=== PATIENT | female | born 1950 | race Hispanic/Latino ===

== ENCOUNTER 2021-06-04 12:02 | Inpatient (IN) | payer OTHER, MEDICARE ==
[~2021-06-04] VITALS: Ht 157.5 cm; Wt 86.2 kg
[2021-06-04 12:40] LABS: BASOPHILS % (AUTO) 0.1 % (0.0-5.0); HEMATOCRIT 40.3 % (36-48); LYMPHOCYTES % (AUTO) 5.7 % (21.0-51.0); MEAN CORPUSCULAR HEMOGLOBIN 28.5 pg (27.0-33.0); MEAN CORPUSCULAR HGB CONC 33.3 g/dL (32.0-36.0); MEAN CORPUSCULAR VOLUME 85.6 fL (79-99); MONOCYTES % (AUTO) 4.7 % (3.0-13.0); NEUTROPHILS % (AUTO) 88.9 % (40.0-77.0); PLATELET COUNT (AUTO) 106 K/uL (130-400); RED BLOOD CELL COUNT(AUTO) 4.71 MIL/uL (4.00-5.50); RED CELL DISTRIBUTION WIDTH 14.7 % (11.0-15.5); WHITE BLOOD COUNT (AUTO) 6.9 K/uL (4.8-10.8)
[2021-06-04] MEDS ORDERED: FAMOTIDINE 20MG VIAL IV STA (12:41)
[2021-06-04 12:52] LABS: ALBUMIN 3.2 g/dL (3.5-5.0); BILIRUBIN,DIRECT 0.2 mg/dL (0.0-0.3); BILIRUBIN,TOTAL 0.5 mg/dL (0.2-1.0); CREATININE 2.9 mg/dL (0.5-1.5); POTASSIUM 3.3 mmol/L (3.5-5.1); TOTAL PROTEIN, SERUM 8.4 g/dL (6.0-8.3)
[2021-06-04] MEDS ORDERED: CEFTRIAXONE 1G VIAL 1 GM in 0.9%NACL 100ML 100 ML IV ONE (13:00)
[2021-06-04] MEDS ORDERED: SOLU-MEDROL 125MG VIAL IVP ONE (13:00)
[2021-06-04] MEDS ORDERED: CEFTRIAXONE 1G VIAL IVP SCH (13:00)
[2021-06-04] MEDS ORDERED: ALBUTEROL INHALER 90MCG/INH IH SCH (13:00)
[2021-06-04] MEDS ORDERED: 0.9%NACL 1000ML 1,000 ML IV ONE (13:00)
[2021-06-04 13:09] LABS: ABG BASE EXCESS -1.6 mmol/L (-2.0-3.0); ABG HCO3 23.3 mmol/L (21.0-28.0); ABG OXYGEN SATURATION 87.9 % (95.0-99.0); ABG PCO2 40 mmHg (32-45)
[2021-06-04] MEDS ORDERED: 0.9%NACL 50ML 50 ML IV ONE (13:10)
[2021-06-04 13:41] LABS: ERYTHROCYTE SEDIMENTATION RATE 82 MM/HR (0-30)
[2021-06-04] MEDS ORDERED: IPRATROPIUM 0.5 MG/2.5 ML INH IH PRN (15:00)
[2021-06-04] MEDS ORDERED: POTASSIUM CHLORIDE 10% ELIXIR 20 MEQ/15 ML UDCUP PO ONE (15:00)
[2021-06-04] MEDS: 0.9%NACL 1000ML 1,000 ML IV SCH (15:23)
[2021-06-04] MEDS: 0.9% NACL 250ML IVPB SCH (15:23)
[2021-06-04] MEDS: HEPARIN 5,000 UNIT VIAL SQ SCH ×2 (15:23→22:59)
[2021-06-04] MEDS: CEFEPIME HCL 2 GM VIAL IVP SCH (15:23)
[2021-06-04] MEDS: DOXYCYCLINE 100MG+NS 250ML IV SCH (15:23)
[2021-06-04 16:13] LABS: HEMOGLOBIN A1C 11.5 % (4.0-6.0)
[2021-06-04] MEDS: BARICITINIB (EUA) 2 MG TABLET PO SCH (16:41)
[2021-06-04 16:42] LABS: MAGNESIUM 1.5 mg/dL (1.80-2.40); THYROID STIMULATING HORMONE 11.14 uIU/mL (0.36-3.74)
[2021-06-04] MEDS: INSULIN HUMULIN R 100 UNIT/ML 3ML SQ SCH ×2 (16:42→20:00)
[2021-06-04] MEDS ORDERED: MAGNESIUM 2GM PREMIX 50ML 50 ML IV ONE (17:40)
[2021-06-04] MEDS ORDERED: MAGNESIUM 2GM PREMIX 50ML 50 ML IV SCH (18:00)
[2021-06-04 18:26] VITALS: BP 124/64
[2021-06-04 19:46] VITALS: BP 153/96
[2021-06-04] MEDS: SOLU-MEDROL 40MG VIAL IVP SCH (19:57)
[2021-06-04] MEDS: INSULIN GLARGINE 100 UNITS/ML 10 ML VIAL SQ SCH (19:58)
[2021-06-04] MEDS: PHARMACY COMMUNICATION**REMDESIVIR ORDER MISC SCH (23:00)
[2021-06-04 23:48] LABS: CREATININE,URINE RANDOM 52 mg/dL (30-135); SODIUM,URINE RANDOM 52 mmol/l (40-220)
[2021-06-05] VITALS (8 sets, daily range): BP systolic 132–168; BP diastolic 66–94
[2021-06-05] MEDS: DOXYCYCLINE 100MG+NS 250ML IV SCH ×3 (03:45→15:45)
[2021-06-05] MEDS: 0.9% NACL 250ML IVPB SCH ×3 (03:45→15:45)
[2021-06-05] MEDS: 0.9%NACL 1000ML 1,000 ML IV SCH (04:49)
[2021-06-05 05:14] LABS: BASOPHILS % (AUTO) 0.2 % (0.0-5.0); EOSINOPHILS % (AUTO) 2.3 % (0.0-8.0); HEMATOCRIT 40.2 % (36-48); LYMPHOCYTES % (AUTO) 10.3 % (21.0-51.0); MEAN CORPUSCULAR HEMOGLOBIN 28.3 pg (27.0-33.0); MEAN CORPUSCULAR HGB CONC 32.8 g/dL (32.0-36.0); MEAN CORPUSCULAR VOLUME 86.1 fL (79-99); MONOCYTES % (AUTO) 2.9 % (3.0-13.0); NEUTROPHILS % (AUTO) 83.9 % (40.0-77.0); PLATELET COUNT (AUTO) 109 K/uL (130-400); RED BLOOD CELL COUNT(AUTO) 4.67 MIL/uL (4.00-5.50); RED CELL DISTRIBUTION WIDTH 14.7 % (11.0-15.5); WHITE BLOOD COUNT (AUTO) 4.8 K/uL (4.8-10.8)
[2021-06-05 05:35] LABS: ALBUMIN 2.6 g/dL (3.5-5.0); BILIRUBIN,TOTAL 0.3 mg/dL (0.2-1.0); CREATININE 2.2 mg/dL (0.5-1.5); MAGNESIUM 2.4 mg/dL (1.80-2.40); POTASSIUM 3.6 mmol/L (3.5-5.1); TOTAL PROTEIN, SERUM 7.5 g/dL (6.0-8.3)
[2021-06-05] MEDS: HEPARIN 5,000 UNIT VIAL SQ SCH (06:39)
[2021-06-05] MEDS: INSULIN HUMULIN R 100 UNIT/ML 3ML SQ SCH ×6 (06:40→20:31)
[2021-06-05] MEDS: PHARMACY COMMUNICATION**REMDESIVIR ORDER MISC SCH ×3 (06:53→21:52)
[2021-06-05] MEDS: SOLU-MEDROL 40MG VIAL IVP SCH ×2 (08:18→20:24)
[2021-06-05] MEDS: BARICITINIB (EUA) 2 MG TABLET PO SCH (08:18)
[2021-06-05] MEDS: PANTOPRAZOLE 40 MG TAB DR PO SCH (08:19)
[2021-06-05] MEDS ORDERED: LACTATED RINGERS 1000ML 1,000 ML IV SCH (10:00)
[2021-06-05] MEDS ORDERED: MAGNESIUM 2GM PREMIX 50ML 50 ML IV SCH (10:00)
[2021-06-05] MEDS: ENOXAPARIN SODIUM 40 MG/0.4 ML SYRINGE SQ SCH (10:08)
[2021-06-05] MEDS: TRAMADOL HCL 50 MG TABLET PO PRN ×4 (10:40→20:24)
[2021-06-05] MEDS ORDERED: INSULIN HUMULIN R 100 UNIT/ML 3ML SQ SCH (11:30)
[2021-06-05] MEDS: CEFEPIME HCL 2 GM VIAL IVP SCH (15:45)
[2021-06-05] MEDS: INSULIN GLARGINE 100 UNITS/ML 10 ML VIAL SQ SCH (20:30)
[2021-06-06] VITALS (11 sets, daily range): BP systolic 125–178; BP diastolic 64–100
[2021-06-06] MEDS: 0.9% NACL 250ML IVPB SCH ×2 (03:00→14:10)
[2021-06-06] MEDS: DOXYCYCLINE 100MG+NS 250ML IV SCH ×3 (03:00→20:13)
[2021-06-06] MEDS: PHARMACY COMMUNICATION**REMDESIVIR ORDER MISC SCH ×2 (03:08→18:39)
[2021-06-06 05:11] LABS: BASOPHILS % (AUTO) 0.1 % (0.0-5.0); HEMATOCRIT 41.1 % (36-48); LYMPHOCYTES % (AUTO) 4.8 % (21.0-51.0); MEAN CORPUSCULAR HEMOGLOBIN 27.9 pg (27.0-33.0); MEAN CORPUSCULAR HGB CONC 33.1 g/dL (32.0-36.0); MEAN CORPUSCULAR VOLUME 84.2 fL (79-99); MONOCYTES % (AUTO) 2.7 % (3.0-13.0); NEUTROPHILS % (AUTO) 91.6 % (40.0-77.0); PLATELET COUNT (AUTO) 137 K/uL (130-400); RED BLOOD CELL COUNT(AUTO) 4.88 MIL/uL (4.00-5.50); RED CELL DISTRIBUTION WIDTH 14.5 % (11.0-15.5); WHITE BLOOD COUNT (AUTO) 9.8 K/uL (4.8-10.8)
[2021-06-06] MEDS: TRAMADOL HCL 50 MG TABLET PO PRN ×2 (05:40→14:27)
[2021-06-06] MEDS: LEVOTHYROXINE 75 MCG TABLET PO SCH (05:40)
[2021-06-06] MEDS: INSULIN HUMULIN R 100 UNIT/ML 3ML SQ SCH ×7 (06:13→20:20)
[2021-06-06 06:23] LABS: ALANINE AMINOTRANSFERASE 34 U/L (12-78); ALBUMIN 2.4 g/dL (3.5-5.0); ASPARTATE AMINOTRANSFERASE 47 U/L (10-37); BILIRUBIN,TOTAL 0.4 mg/dL (0.2-1.0); CARBON DIOXIDE 26 mmol/L (21-32); CHLORIDE 100 mmol/L (101-111); CREATINE KINASE, TOTAL 149 U/L (21-232); CREATININE 1.4 mg/dL (0.5-1.5); GLOMERULAR FILTR. RATE CALC 40 mL/min (>60); GLUCOSE,RANDOM 212 mg/dL (70-105); MYOGLOBIN 150 ng/mL (10-92); PHOSPHORUS 3.3 mg/dL (2.5-4.9); POTASSIUM 3.7 mmol/L (3.5-5.1); SODIUM SERUM 137 mmol/L (136-145); TOTAL PROTEIN, SERUM 7.6 g/dL (6.0-8.3); UREA NITROGEN, BLOOD 35 mg/dL (7-18)
[2021-06-06] MEDS: SOLU-MEDROL 40MG VIAL IVP SCH ×2 (08:19→20:13)
[2021-06-06] MEDS: PANTOPRAZOLE 40 MG TAB DR PO SCH (08:19)
[2021-06-06] MEDS: ENOXAPARIN SODIUM 40 MG/0.4 ML SYRINGE SQ SCH ×2 (08:20→20:13)
[2021-06-06] MEDS: BARICITINIB (EUA) 2 MG TABLET PO SCH (08:20)
[2021-06-06] MEDS ORDERED: PHARMACY COMMUNICATION**REMDESIVIR MISC SCH (09:30)
[2021-06-06] MEDS: AMLODIPINE 2.5 MG TAB PO SCH (09:44)
[2021-06-06] MEDS: METOPROLOL TARTRATE 25 MG TAB PO SCH ×2 (09:44→20:21)
[2021-06-06] MEDS ORDERED: LABETALOL 20MG VIAL IV PRN (10:00)
[2021-06-06] MEDS ORDERED: [UNRECOGNIZED DRUG - REMARK] MISC SCH (11:30)
[2021-06-06] MEDS ORDERED: FUROSEMIDE 20MG VIAL IV ONE (14:00)
[2021-06-06] MEDS: CEFEPIME HCL 2 GM VIAL IVP SCH (14:10)
[2021-06-06] MEDS ORDERED: SOLU-MEDROL 40MG VIAL IVP SCH ×2 (16:00→17:00)
[2021-06-06] MEDS ORDERED: PHARMACY COMMUNICATION MISC SCH (16:00)
[2021-06-06 16:39] LABS: APPEARANCE,URINE Clear (CLEAR); BILIRUBIN,URINE Negative (NEGATIVE); COLOR,URINE Yellow (YELLOW); GLUCOSE, URINE (UA) Negative (NEGATIVE); KETONES,URINE Negative (NEGATIVE); LEUKOCYTE ESTERASE ,URINE Negative (NEGATIVE); NITRATE,URINE Negative (NEGATIVE); OCCULT BLOOD,URINE Small (NEGATIVE); PH,URINE 5.5 (5.0-8.0); PROTEIN,URINE Trace mg/dL (NEGATIVE); UROBILINOGEN,URINE 0.2 mg/dL (0.2-1.0)
[2021-06-06 16:53] LABS: BACTERIA,URINE Rare /HPF (None Seen); MUCUS,URINE Few LPF (None Seen); SQUAMOUS EPITHELIAL CELL,UR Few /HPF (0-2); TRANSITIONAL EPI CELLS,URINE Few /HPF (None Seen); WBC,URINE 0-1 /HPF (0-1)
[2021-06-06] MEDS ORDERED: REMDESIVIR (EUA) 520 200 MG in 0.9% NACL 250ML 250 ML IV SCH (17:00)
[2021-06-06] MEDS ORDERED: COMPOUND IV REFRIGERATED 1 EACH IVSOLN MISC PRN (17:00)
[2021-06-06] MEDS: [UNRECOGNIZED DRUG - REMARK] MISC SCH (18:38)
[2021-06-06] MEDS ORDERED: DOXYCYCLINE 100MG+NS 250ML 250 ML IV ONE (19:54)
[2021-06-06] MEDS ORDERED: HYDRALAZINE 20MG/ML VIAL IM PRN (20:00)
[2021-06-06] MEDS: INSULIN GLARGINE 100 UNITS/ML 10 ML VIAL SQ SCH (20:20)
[2021-06-07] VITALS (23 sets, daily range): BP systolic 129–174; BP diastolic 61–90
[2021-06-07] MEDS: TRAMADOL HCL 50 MG TABLET PO PRN ×2 (00:31→11:34)
[2021-06-07] MEDS: [UNRECOGNIZED DRUG - REMARK] MISC SCH ×3 (03:30→18:34)
[2021-06-07 05:24] LABS: BASOPHILS % (AUTO) 0.2 % (0.0-5.0); HEMATOCRIT 40.7 % (36-48); LYMPHOCYTES % (AUTO) 4.5 % (21.0-51.0); MEAN CORPUSCULAR HGB CONC 33.2 g/dL (32.0-36.0); MEAN CORPUSCULAR VOLUME 84.4 fL (79-99); MONOCYTES % (AUTO) 3.7 % (3.0-13.0); NEUTROPHILS % (AUTO) 90.1 % (40.0-77.0); PLATELET COUNT (AUTO) 143 K/uL (130-400); RED BLOOD CELL COUNT(AUTO) 4.82 MIL/uL (4.00-5.50); RED CELL DISTRIBUTION WIDTH 14.6 % (11.0-15.5); WHITE BLOOD COUNT (AUTO) 9.9 K/uL (4.8-10.8)
[2021-06-07 05:42] LABS: ALBUMIN 2.3 g/dL (3.5-5.0); BILIRUBIN,TOTAL 0.4 mg/dL (0.2-1.0); CREATININE 1.1 mg/dL (0.5-1.5); CRP QUANTITATIVE 408.2 mg/L (0.00-9.0); POTASSIUM 3.4 mmol/L (3.5-5.1); TOTAL PROTEIN, SERUM 7.6 g/dL (6.0-8.3)
[2021-06-07 05:52] LABS: B-TYPE NATRIURETIC PEPTIDE 143 pg/mL (0-100)
[2021-06-07] MEDS: REMDESIVIR LABS MISC SCH (06:00)
[2021-06-07] MEDS: SOLU-MEDROL 40MG VIAL IVP SCH ×3 (06:21→22:07)
[2021-06-07] MEDS: LEVOTHYROXINE 75 MCG TABLET PO SCH (06:21)
[2021-06-07] MEDS: INSULIN HUMULIN R 100 UNIT/ML 3ML SQ SCH ×7 (06:22→22:05)
[2021-06-07] MEDS: PHARMACY COMMUNICATION**REMDESIVIR ORDER MISC SCH ×3 (07:00→23:00)
[2021-06-07] MEDS: METOPROLOL TARTRATE 25 MG TAB PO SCH ×2 (08:25→22:01)
[2021-06-07] MEDS: PANTOPRAZOLE 40 MG TAB DR PO SCH (08:25)
[2021-06-07] MEDS: AMLODIPINE 2.5 MG TAB PO SCH (08:25)
[2021-06-07] MEDS: DOXYCYCLINE 100MG+NS 250ML IV SCH ×2 (08:26→22:00)
[2021-06-07] MEDS: BARICITINIB (EUA) 2 MG TABLET PO SCH ×2 (08:26→10:27)
[2021-06-07] MEDS: ENOXAPARIN SODIUM 40 MG/0.4 ML SYRINGE SQ SCH ×2 (08:26→22:07)
[2021-06-07] MEDS ORDERED: CEFEPIME HCL 2 GM VIAL IVP SCH (09:00)
[2021-06-07] MEDS: HYDRALAZINE 20MG/ML VIAL IV PRN (11:34)
[2021-06-07] MEDS: 0.9% NACL 250ML IVPB SCH ×2 (13:21→22:00)
[2021-06-07] MEDS: REMDESIVIR (EUA) 520 100 MG in 0.9% NACL 250ML 250 ML IV SCH (16:51)
[2021-06-07] MEDS ORDERED: FUROSEMIDE 20MG VIAL IV ONE (18:00)
[2021-06-07] MEDS: CEFEPIME HCL 2 GM VIAL IVP SCH (22:01)
[2021-06-07] MEDS: INSULIN GLARGINE 100 UNITS/ML 10 ML VIAL SQ SCH (22:06)
[2021-06-08] VITALS (23 sets, daily range): BP systolic 135–187; BP diastolic 63–99
[2021-06-08] MEDS: [UNRECOGNIZED DRUG - REMARK] MISC SCH ×3 (03:30→18:40)
[2021-06-08 05:50] LABS: BASOPHILS % (AUTO) 0.4 % (0.0-5.0); HEMATOCRIT 40.7 % (36-48); LYMPHOCYTES % (AUTO) 6.2 % (21.0-51.0); MEAN CORPUSCULAR HEMOGLOBIN 28.3 pg (27.0-33.0); MEAN CORPUSCULAR HGB CONC 34.2 g/dL (32.0-36.0); MEAN CORPUSCULAR VOLUME 82.7 fL (79-99); MONOCYTES % (AUTO) 3.8 % (3.0-13.0); NEUTROPHILS % (AUTO) 85.9 % (40.0-77.0); PLATELET COUNT (AUTO) 167 K/uL (130-400); RED BLOOD CELL COUNT(AUTO) 4.92 MIL/uL (4.00-5.50); RED CELL DISTRIBUTION WIDTH 14.8 % (11.0-15.5); WHITE BLOOD COUNT (AUTO) 9.5 K/uL (4.8-10.8)
[2021-06-08] MEDS: REMDESIVIR LABS MISC SCH (06:00)
[2021-06-08] MEDS: LEVOTHYROXINE 75 MCG TABLET PO SCH (06:11)
[2021-06-08] MEDS: SOLU-MEDROL 40MG VIAL IVP SCH ×3 (06:11→21:09)
[2021-06-08 06:18] LABS: ALBUMIN 2.3 g/dL (3.5-5.0); BILIRUBIN,TOTAL 0.6 mg/dL (0.2-1.0); CREATININE 1.1 mg/dL (0.5-1.5); TOTAL PROTEIN, SERUM 7.7 g/dL (6.0-8.3)
[2021-06-08 06:50] LABS: ABG BASE EXCESS 0.2 mmol/L (-2.0-3.0); ABG HCO3 23.3 mmol/L (21.0-28.0); ABG OXYGEN SATURATION 96.6 % (95.0-99.0); ABG PCO2 33 mmHg (32-45)
[2021-06-08] MEDS: INSULIN HUMULIN R 100 UNIT/ML 3ML SQ SCH ×7 (07:19→21:11)
[2021-06-08] MEDS: DOXYCYCLINE 100MG+NS 250ML IV SCH ×2 (08:19→21:06)
[2021-06-08] MEDS: METOPROLOL TARTRATE 25 MG TAB PO SCH ×2 (08:19→21:06)
[2021-06-08] MEDS: CEFEPIME HCL 2 GM VIAL IVP SCH ×2 (08:19→21:06)
[2021-06-08] MEDS: PANTOPRAZOLE 40 MG TAB DR PO SCH (08:19)
[2021-06-08] MEDS: ENOXAPARIN SODIUM 40 MG/0.4 ML SYRINGE SQ SCH ×2 (08:20→21:09)
[2021-06-08] MEDS: BARICITINIB (EUA) 2 MG TABLET PO SCH (08:20)
[2021-06-08] MEDS: AMLODIPINE 2.5 MG TAB PO SCH (08:20)
[2021-06-08] MEDS: PHARMACY COMMUNICATION**REMDESIVIR ORDER MISC SCH ×3 (08:21→23:00)
[2021-06-08] MEDS: AMLODIPINE 5 MG TAB PO SCH (09:46)
[2021-06-08] MEDS: KCL 20 MEQ ERTAB PO PRN ×3 (09:48→16:49)
[2021-06-08] MEDS ORDERED: POTASSIUM CHLORIDE 10MEQ/100ML 100 ML IV PRN (10:00)
[2021-06-08] MEDS: 0.9% NACL 250ML IVPB SCH (13:15)
[2021-06-08] MEDS: POTASSIUM CHLORIDE 10% ELIXIR 20 MEQ/15 ML UDCUP PO PRN (13:40)
[2021-06-08] MEDS: TRAMADOL HCL 50 MG TABLET PO PRN (16:50)
[2021-06-08] MEDS: REMDESIVIR (EUA) 520 100 MG in 0.9% NACL 250ML 250 ML IV SCH (16:52)
[2021-06-08] MEDS: INSULIN GLARGINE 100 UNITS/ML 10 ML VIAL SQ SCH (21:10)
[2021-06-09] VITALS (7 sets, daily range): BP systolic 111–187; BP diastolic 49–106
[2021-06-09] MEDS: 0.9% NACL 250ML IVPB SCH ×3 (03:46→23:44)
[2021-06-09] MEDS: [UNRECOGNIZED DRUG - REMARK] MISC SCH ×3 (03:46→19:30)
[2021-06-09] MEDS: HYDRALAZINE 20MG/ML VIAL IV PRN (03:59)
[2021-06-09 04:52] LABS: BASOPHILS % (AUTO) 0.4 % (0.0-5.0); EOSINOPHILS % (AUTO) 1.3 % (0.0-8.0); HEMATOCRIT 42.2 % (36-48); LYMPHOCYTES % (AUTO) 3.2 % (21.0-51.0); MEAN CORPUSCULAR HEMOGLOBIN 27.9 pg (27.0-33.0); MEAN CORPUSCULAR HGB CONC 33.2 g/dL (32.0-36.0); MEAN CORPUSCULAR VOLUME 84.1 fL (79-99); MONOCYTES % (AUTO) 5.2 % (3.0-13.0); NEUTROPHILS % (AUTO) 84.9 % (40.0-77.0); PLATELET COUNT (AUTO) 210 K/uL (130-400); RED BLOOD CELL COUNT(AUTO) 5.02 MIL/uL (4.00-5.50); WHITE BLOOD COUNT (AUTO) 14.9 K/uL (4.8-10.8)
[2021-06-09 05:21] LABS: ALBUMIN 2.2 g/dL (3.5-5.0); BILIRUBIN,TOTAL 0.7 mg/dL (0.2-1.0); CREATININE 0.9 mg/dL (0.5-1.5); CRP QUANTITATIVE 120.5 mg/L (0.00-9.0); POTASSIUM 3.4 mmol/L (3.5-5.1); TOTAL PROTEIN, SERUM 7.3 g/dL (6.0-8.3)
[2021-06-09] MEDS: REMDESIVIR LABS MISC SCH (06:00)
[2021-06-09] MEDS: LEVOTHYROXINE 75 MCG TABLET PO SCH (06:19)
[2021-06-09] MEDS: SOLU-MEDROL 40MG VIAL IVP SCH ×3 (06:19→19:43)
[2021-06-09] MEDS: INSULIN HUMULIN R 100 UNIT/ML 3ML SQ SCH ×7 (06:22→20:53)
[2021-06-09] MEDS: PANTOPRAZOLE 40 MG TAB DR PO SCH (09:13)
[2021-06-09] MEDS: CEFEPIME HCL 2 GM VIAL IVP SCH ×2 (09:13→19:43)
[2021-06-09] MEDS: METOPROLOL TARTRATE 25 MG TAB PO SCH ×2 (09:13→19:45)
[2021-06-09] MEDS: BARICITINIB (EUA) 2 MG TABLET PO SCH (09:13)
[2021-06-09] MEDS: AMLODIPINE 5 MG TAB PO SCH (09:13)
[2021-06-09] MEDS: ENOXAPARIN SODIUM 40 MG/0.4 ML SYRINGE SQ SCH ×2 (09:14→19:43)
[2021-06-09] MEDS: DOXYCYCLINE 100MG+NS 250ML IV SCH ×2 (09:14→19:43)
[2021-06-09] MEDS ORDERED: ONDANSETRON 4MG INJ IVP PRN (10:00)
[2021-06-09] MEDS: REMDESIVIR (EUA) 520 100 MG in 0.9% NACL 250ML 250 ML IV SCH (17:30)
[2021-06-09] MEDS: INSULIN GLARGINE 100 UNITS/ML 10 ML VIAL SQ SCH (19:45)
[2021-06-09] MEDS: TRAMADOL HCL 50 MG TABLET PO PRN (19:47)
[2021-06-10] VITALS (7 sets, daily range): BP systolic 149–168; BP diastolic 67–104
[2021-06-10 04:07] LABS: BASOPHILS % (AUTO) 0.3 % (0.0-5.0); EOSINOPHILS % (AUTO) 1.6 % (0.0-8.0); HEMATOCRIT 39.5 % (36-48); LYMPHOCYTES % (AUTO) 3.1 % (21.0-51.0); MEAN CORPUSCULAR HEMOGLOBIN 27.7 pg (27.0-33.0); MEAN CORPUSCULAR HGB CONC 33.4 g/dL (32.0-36.0); MONOCYTES % (AUTO) 5.3 % (3.0-13.0); NEUTROPHILS % (AUTO) 85.2 % (40.0-77.0); PLATELET COUNT (AUTO) 187 K/uL (130-400); RED BLOOD CELL COUNT(AUTO) 4.76 MIL/uL (4.00-5.50); WHITE BLOOD COUNT (AUTO) 14.6 K/uL (4.8-10.8)
[2021-06-10 04:23] LABS: ALBUMIN 2.1 g/dL (3.5-5.0); BILIRUBIN,TOTAL 0.6 mg/dL (0.2-1.0); CREATININE 0.9 mg/dL (0.5-1.5); CRP QUANTITATIVE 85.2 mg/L (0.00-9.0); POTASSIUM 3.3 mmol/L (3.5-5.1)
[2021-06-10] MEDS: SOLU-MEDROL 40MG VIAL IVP SCH ×2 (06:47→17:32)
[2021-06-10] MEDS: LEVOTHYROXINE 75 MCG TABLET PO SCH (06:47)
[2021-06-10] MEDS: INSULIN HUMULIN R 100 UNIT/ML 3ML SQ SCH ×7 (06:49→20:15)
[2021-06-10] MEDS ORDERED: VANCOMYCIN PROTOCOL PER PHARMACY IV SCH (09:00)
[2021-06-10] MEDS: DOXYCYCLINE 100MG+NS 250ML IV SCH ×2 (09:01→20:14)
[2021-06-10] MEDS: AMLODIPINE 5 MG TAB PO SCH (09:02)
[2021-06-10] MEDS: BARICITINIB (EUA) 2 MG TABLET PO SCH (09:02)
[2021-06-10] MEDS: METOPROLOL TARTRATE 25 MG TAB PO SCH ×2 (09:03→19:50)
[2021-06-10] MEDS: KCL 20 MEQ ERTAB PO PRN ×3 (09:03→18:00)
[2021-06-10] MEDS: PANTOPRAZOLE 40 MG TAB DR PO SCH (09:03)
[2021-06-10] MEDS: ENOXAPARIN SODIUM 40 MG/0.4 ML SYRINGE SQ SCH ×2 (09:04→20:16)
[2021-06-10] MEDS ORDERED: MAG/ALUM/SIMETH 30 ML UDCUP PO PRN (13:00)
[2021-06-10] MEDS ORDERED: COMPOUND IV REFRIGERATED 1 EACH IVSOLN MISC PRN (13:00)
[2021-06-10] MEDS ORDERED: VANCOMYCIN 1.5GM/NS 250ML IV ONE ×2 (13:00)
[2021-06-10] MEDS ORDERED: LOSA50TA64 PO (13:39)
[2021-06-10] MEDS ORDERED: OXYB10TA30 PO (13:39)
[2021-06-10] MEDS ORDERED: ROPI1TAB13 PO (13:39)
[2021-06-10] MEDS ORDERED: LEVO175C2 PO (13:39)
[2021-06-10] MEDS ORDERED: SERT100T PO (13:39)
[2021-06-10] MEDS: 0.9% NACL 250ML IVPB SCH (15:00)
[2021-06-10] MEDS: REMDESIVIR (EUA) 520 100 MG in 0.9% NACL 250ML 250 ML IV SCH (17:44)
[2021-06-10] MEDS: ROPINIROLE HCL 1 MG TABLET PO SCH (19:50)
[2021-06-10] MEDS: INSULIN GLARGINE 100 UNITS/ML 10 ML VIAL SQ SCH (20:15)
[2021-06-11] VITALS (16 sets, daily range): BP systolic 110–168; BP diastolic 66–98
[2021-06-11] MEDS ORDERED: 0.9% NACL 250ML IVPB SCH (01:00)
[2021-06-11] MEDS ORDERED: VANCOMYCIN 750MG VIAL IVPB SCH (01:00)
[2021-06-11] MEDS: 0.9% NACL 250ML IVPB SCH ×2 (03:00→14:10)
[2021-06-11 04:21] LABS: BASOPHILS % (AUTO) 0.5 % (0.0-5.0); LYMPHOCYTES % (AUTO) 2.9 % (21.0-51.0); MEAN CORPUSCULAR HEMOGLOBIN 28.1 pg (27.0-33.0); MEAN CORPUSCULAR HGB CONC 33.1 g/dL (32.0-36.0); MEAN CORPUSCULAR VOLUME 84.8 fL (79-99); MONOCYTES % (AUTO) 5.3 % (3.0-13.0); PLATELET COUNT (AUTO) 208 K/uL (130-400); RED BLOOD CELL COUNT(AUTO) 4.95 MIL/uL (4.00-5.50); RED CELL DISTRIBUTION WIDTH 15.2 % (11.0-15.5); WHITE BLOOD COUNT (AUTO) 15.5 K/uL (4.8-10.8)
[2021-06-11 04:33] LABS: ALBUMIN 2.2 g/dL (3.5-5.0); BILIRUBIN,TOTAL 0.5 mg/dL (0.2-1.0); CRP QUANTITATIVE 93.3 mg/L (0.00-9.0); POTASSIUM 3.5 mmol/L (3.5-5.1); TOTAL PROTEIN, SERUM 6.9 g/dL (6.0-8.3)
[2021-06-11] MEDS: SOLU-MEDROL 40MG VIAL IVP SCH ×2 (06:16→16:39)
[2021-06-11] MEDS: INSULIN HUMULIN R 100 UNIT/ML 3ML SQ SCH ×7 (06:17→21:00)
[2021-06-11] MEDS: DOXYCYCLINE 100MG+NS 250ML IV SCH ×2 (08:45→21:46)
[2021-06-11] MEDS: LEVOTHYROXINE 88 MCG TABLET PO SCH (08:45)
[2021-06-11] MEDS: AMLODIPINE 5 MG TAB PO SCH (08:46)
[2021-06-11] MEDS: OXYBUTYNIN 5 MG TAB.SR.24H PO SCH (08:46)
[2021-06-11] MEDS: METOPROLOL TARTRATE 25 MG TAB PO SCH ×2 (08:49→22:01)
[2021-06-11] MEDS: PANTOPRAZOLE 40 MG TAB DR PO SCH (08:49)
[2021-06-11] MEDS: BARICITINIB (EUA) 2 MG TABLET PO SCH (08:49)
[2021-06-11] MEDS: ENOXAPARIN SODIUM 40 MG/0.4 ML SYRINGE SQ SCH ×2 (08:50→21:53)
[2021-06-11] MEDS: POTASSIUM CHLORIDE 10% ELIXIR 20 MEQ/15 ML UDCUP PO PRN (08:54)
[2021-06-11] MEDS: INSULIN GLARGINE 100 UNITS/ML 10 ML VIAL SQ SCH (21:45)
[2021-06-11] MEDS: ROPINIROLE HCL 1 MG TABLET PO SCH (21:51)
[2021-06-12] VITALS (7 sets, daily range): BP systolic 133–161; BP diastolic 76–93
[2021-06-12] MEDS ORDERED: TRAMADOL HCL 50 MG TABLET PO ONE
[2021-06-12] MEDS ORDERED: ZOLPIDEM TARTRATE 5 MG TAB PO ONE
[2021-06-12] MEDS: 0.9% NACL 250ML IVPB SCH ×2 (04:31→21:37)
[2021-06-12] MEDS: SOLU-MEDROL 40MG VIAL IVP SCH ×2 (06:17→17:46)
[2021-06-12] MEDS: INSULIN HUMULIN R 100 UNIT/ML 3ML SQ SCH ×7 (06:44→21:00)
[2021-06-12] MEDS: LEVOTHYROXINE 88 MCG TABLET PO SCH (07:11)
[2021-06-12 08:17] LABS: BASOPHILS % (AUTO) 0.3 % (0.0-5.0); EOSINOPHILS % (AUTO) 0.3 % (0.0-8.0); HEMATOCRIT 43.6 % (36-48); LYMPHOCYTES % (AUTO) 3.7 % (21.0-51.0); MEAN CORPUSCULAR HEMOGLOBIN 27.8 pg (27.0-33.0); MEAN CORPUSCULAR VOLUME 84.2 fL (79-99); NEUTROPHILS % (AUTO) 87.5 % (40.0-77.0); PLATELET COUNT (AUTO) 230 K/uL (130-400); RED BLOOD CELL COUNT(AUTO) 5.18 MIL/uL (4.00-5.50); RED CELL DISTRIBUTION WIDTH 15.3 % (11.0-15.5); WHITE BLOOD COUNT (AUTO) 17.4 K/uL (4.8-10.8)
[2021-06-12] MEDS ORDERED: ALPRAZOLAM 0.25 MG TABLET PO SCH (08:30)
[2021-06-12 08:38] LABS: ALBUMIN 2.3 g/dL (3.5-5.0); BILIRUBIN,TOTAL 0.6 mg/dL (0.2-1.0); CREATININE 0.7 mg/dL (0.5-1.5); CRP QUANTITATIVE 80.4 mg/L (0.00-9.0); POTASSIUM 3.6 mmol/L (3.5-5.1)
[2021-06-12] MEDS: PANTOPRAZOLE 40 MG TAB DR PO SCH (09:12)
[2021-06-12] MEDS: OXYBUTYNIN 5 MG TAB.SR.24H PO SCH (09:13)
[2021-06-12] MEDS: METOPROLOL TARTRATE 25 MG TAB PO SCH ×2 (09:13→21:35)
[2021-06-12] MEDS: AMLODIPINE 5 MG TAB PO SCH (09:13)
[2021-06-12] MEDS: DOXYCYCLINE 100MG+NS 250ML IV SCH ×2 (09:13→21:34)
[2021-06-12] MEDS: BARICITINIB (EUA) 2 MG TABLET PO SCH (09:13)
[2021-06-12] MEDS: KCL 20 MEQ ERTAB PO PRN ×2 (09:13→12:42)
[2021-06-12] MEDS: ACETAMINOPHEN 325 MG TAB PO PRN (15:56)
[2021-06-12] MEDS: ROPINIROLE HCL 1 MG TABLET PO SCH (21:35)
[2021-06-12] MEDS: ENOXAPARIN SODIUM 100 MG/1 ML SQ SCH (21:35)
[2021-06-12] MEDS: INSULIN GLARGINE 100 UNITS/ML 10 ML VIAL SQ SCH (21:36)
[2021-06-13 02:39] VITALS: BP 129/79
[2021-06-13 03:34] VITALS: BP 126/81
[2021-06-13] MEDS: 0.9% NACL 250ML IVPB SCH ×3 (04:35→21:31)
[2021-06-13] MEDS: SOLU-MEDROL 40MG VIAL IVP SCH ×2 (05:12→17:12)
[2021-06-13] MEDS: LEVOTHYROXINE 88 MCG TABLET PO SCH (05:12)
[2021-06-13 05:26] LABS: BASOPHILS % (AUTO) 0.2 % (0.0-5.0); EOSINOPHILS % (AUTO) 0.3 % (0.0-8.0); HEMATOCRIT 38.8 % (36-48); LYMPHOCYTES % (AUTO) 2.8 % (21.0-51.0); MEAN CORPUSCULAR HEMOGLOBIN 27.7 pg (27.0-33.0); MEAN CORPUSCULAR HGB CONC 32.7 g/dL (32.0-36.0); MEAN CORPUSCULAR VOLUME 84.7 fL (79-99); MONOCYTES % (AUTO) 2.4 % (3.0-13.0); NEUTROPHILS % (AUTO) 90.5 % (40.0-77.0); PLATELET COUNT (AUTO) 202 K/uL (130-400); RED BLOOD CELL COUNT(AUTO) 4.58 MIL/uL (4.00-5.50); RED CELL DISTRIBUTION WIDTH 15.4 % (11.0-15.5); WHITE BLOOD COUNT (AUTO) 12.1 K/uL (4.8-10.8)
[2021-06-13 06:00] LABS: ALBUMIN 2.1 g/dL (3.5-5.0); BILIRUBIN,TOTAL 0.5 mg/dL (0.2-1.0); CREATININE 0.8 mg/dL (0.5-1.5); CRP QUANTITATIVE 118.2 mg/L (0.00-9.0); POTASSIUM 4.2 mmol/L (3.5-5.1); TOTAL PROTEIN, SERUM 6.4 g/dL (6.0-8.3)
[2021-06-13] MEDS: INSULIN HUMULIN R 100 UNIT/ML 3ML SQ SCH ×7 (06:34→21:18)
[2021-06-13] MEDS: PANTOPRAZOLE 40 MG TAB DR PO SCH (07:50)
[2021-06-13] MEDS: AMLODIPINE 5 MG TAB PO SCH (07:50)
[2021-06-13] MEDS: METOPROLOL TARTRATE 25 MG TAB PO SCH ×2 (07:50→21:16)
[2021-06-13] MEDS: ENOXAPARIN SODIUM 100 MG/1 ML SQ SCH ×2 (07:51→21:17)
[2021-06-13] MEDS: DOXYCYCLINE 100MG+NS 250ML IV SCH ×2 (07:55→21:17)
[2021-06-13 08:00] VITALS: BP 129/70
[2021-06-13] MEDS: BARICITINIB (EUA) 2 MG TABLET PO SCH (08:40)
[2021-06-13] MEDS: OXYBUTYNIN 5 MG TAB.SR.24H PO SCH (08:46)
[2021-06-13 11:00] VITALS: BP 118/76
[2021-06-13 16:00] VITALS: BP 139/89
[2021-06-13 20:54] VITALS: BP 119/69
[2021-06-13] MEDS: ROPINIROLE HCL 1 MG TABLET PO SCH (21:16)
[2021-06-13] MEDS: INSULIN GLARGINE 100 UNITS/ML 10 ML VIAL SQ SCH (21:19)
[2021-06-13] MEDS: TRAMADOL HCL 50 MG TABLET PO PRN (22:46)
[2021-06-14] VITALS (8 sets, daily range): BP systolic 139–178; BP diastolic 54–89
[2021-06-14 04:16] LABS: BASOPHILS % (AUTO) 0.4 % (0.0-5.0); EOSINOPHILS % (AUTO) 0.3 % (0.0-8.0); HEMATOCRIT 37.5 % (36-48); LYMPHOCYTES % (AUTO) 2.5 % (21.0-51.0); MEAN CORPUSCULAR HEMOGLOBIN 28.3 pg (27.0-33.0); MEAN CORPUSCULAR HGB CONC 32.8 g/dL (32.0-36.0); MEAN CORPUSCULAR VOLUME 86.2 fL (79-99); MONOCYTES % (AUTO) 2.4 % (3.0-13.0); NEUTROPHILS % (AUTO) 91.2 % (40.0-77.0); PLATELET COUNT (AUTO) 211 K/uL (130-400); RED BLOOD CELL COUNT(AUTO) 4.35 MIL/uL (4.00-5.50); RED CELL DISTRIBUTION WIDTH 15.4 % (11.0-15.5); WHITE BLOOD COUNT (AUTO) 14.9 K/uL (4.8-10.8)
[2021-06-14 04:35] LABS: ALBUMIN 2.1 g/dL (3.5-5.0); BILIRUBIN,TOTAL 0.5 mg/dL (0.2-1.0); CREATININE 0.7 mg/dL (0.5-1.5); CRP QUANTITATIVE 92.2 mg/L (0.00-9.0); POTASSIUM 4.2 mmol/L (3.5-5.1); TOTAL PROTEIN, SERUM 6.3 g/dL (6.0-8.3)
[2021-06-14] MEDS: LEVOTHYROXINE 88 MCG TABLET PO SCH (06:17)
[2021-06-14] MEDS: SOLU-MEDROL 40MG VIAL IVP SCH ×2 (06:17→16:58)
[2021-06-14] MEDS: INSULIN HUMULIN R 100 UNIT/ML 3ML SQ SCH ×7 (06:18→20:59)
[2021-06-14] MEDS: TRAMADOL HCL 50 MG TABLET PO PRN ×2 (06:23→21:21)
[2021-06-14] MEDS: DOXYCYCLINE 100MG+NS 250ML IV SCH (07:09)
[2021-06-14] MEDS: PANTOPRAZOLE 40 MG TAB DR PO SCH (07:10)
[2021-06-14] MEDS: METOPROLOL TARTRATE 25 MG TAB PO SCH ×2 (07:10→20:59)
[2021-06-14] MEDS: 0.9% NACL 250ML IVPB SCH (07:10)
[2021-06-14] MEDS: AMLODIPINE 5 MG TAB PO SCH (07:10)
[2021-06-14] MEDS: OXYBUTYNIN 5 MG TAB.SR.24H PO SCH (07:10)
[2021-06-14] MEDS: BARICITINIB (EUA) 2 MG TABLET PO SCH (07:11)
[2021-06-14] MEDS: ENOXAPARIN SODIUM 100 MG/1 ML SQ SCH ×2 (07:12→21:03)
[2021-06-14 18:29] LABS: APPEARANCE,URINE CLOUDY (CLEAR); BILIRUBIN,URINE NEGATIVE (NEGATIVE); COLOR,URINE YELLOW (YELLOW); GLUCOSE, URINE (UA) 250 mg/dL (NEGATIVE); KETONES,URINE NEGATIVE (NEGATIVE); LEUKOCYTE ESTERASE ,URINE NEGATIVE (NEGATIVE); NITRATE,URINE NEGATIVE (NEGATIVE); OCCULT BLOOD,URINE SMALL (NEGATIVE); PROTEIN,URINE 30 mg/dL (NEGATIVE); UROBILINOGEN,URINE 0.2 mg/dL (0.2-1.0)
[2021-06-14 18:48] LABS: BACTERIA,URINE Rare /HPF (None Seen); YEAST,URINE BUDDING Moderate /HPF (None Seen)
[2021-06-14 18:49] LABS: SQUAMOUS EPITHELIAL CELL,UR Rare /HPF (0-2)
[2021-06-14] MEDS: ROPINIROLE HCL 1 MG TABLET PO SCH (20:59)
[2021-06-14] MEDS: INSULIN GLARGINE 100 UNITS/ML 10 ML VIAL SQ SCH (21:03)
[2021-06-15] VITALS (17 sets, daily range): BP systolic 125–163; BP diastolic 64–90
[2021-06-15] MEDS: 0.9% NACL 250ML IVPB SCH ×3 (03:00→20:13)
[2021-06-15 04:14] LABS: BASOPHILS % (AUTO) 0.3 % (0.0-5.0); EOSINOPHILS % (AUTO) 0.1 % (0.0-8.0); HEMATOCRIT 38.1 % (36-48); LYMPHOCYTES % (AUTO) 2.5 % (21.0-51.0); MEAN CORPUSCULAR HEMOGLOBIN 27.8 pg (27.0-33.0); MEAN CORPUSCULAR HGB CONC 32.8 g/dL (32.0-36.0); MEAN CORPUSCULAR VOLUME 84.7 fL (79-99); MONOCYTES % (AUTO) 3.4 % (3.0-13.0); NEUTROPHILS % (AUTO) 89.3 % (40.0-77.0); PLATELET COUNT (AUTO) 195 K/uL (130-400); RED CELL DISTRIBUTION WIDTH 15.2 % (11.0-15.5); WHITE BLOOD COUNT (AUTO) 13.1 K/uL (4.8-10.8)
[2021-06-15 04:32] LABS: ALBUMIN 2.2 g/dL (3.5-5.0); BILIRUBIN,TOTAL 0.4 mg/dL (0.2-1.0); CREATININE 0.6 mg/dL (0.5-1.5); CRP QUANTITATIVE 49.7 mg/L (0.00-9.0); POTASSIUM 4.4 mmol/L (3.5-5.1); TOTAL PROTEIN, SERUM 6.7 g/dL (6.0-8.3)
[2021-06-15] MEDS: LEVOTHYROXINE 88 MCG TABLET PO SCH (05:29)
[2021-06-15] MEDS: SOLU-MEDROL 40MG VIAL IVP SCH ×2 (05:29→17:12)
[2021-06-15] MEDS: METOPROLOL TARTRATE 25 MG TAB PO SCH ×2 (08:30→20:12)
[2021-06-15] MEDS: PANTOPRAZOLE 40 MG TAB DR PO SCH (08:31)
[2021-06-15] MEDS: AMLODIPINE 5 MG TAB PO SCH (08:31)
[2021-06-15] MEDS: ENOXAPARIN SODIUM 100 MG/1 ML SQ SCH ×2 (08:32→20:12)
[2021-06-15] MEDS: INSULIN HUMULIN R 100 UNIT/ML 3ML SQ SCH ×7 (08:34→20:21)
[2021-06-15] MEDS: BARICITINIB (EUA) 2 MG TABLET PO SCH (09:22)
[2021-06-15] MEDS: OXYBUTYNIN 5 MG TAB.SR.24H PO SCH (09:22)
[2021-06-15] MEDS: ROPINIROLE HCL 1 MG TABLET PO SCH (20:12)
[2021-06-15] MEDS: ACETAMINOPHEN 325 MG TAB PO PRN (20:13)
[2021-06-15] MEDS: INSULIN GLARGINE 100 UNITS/ML 10 ML VIAL SQ SCH (20:22)
[2021-06-15] MEDS: TRAMADOL HCL 50 MG TABLET PO PRN (22:05)
[2021-06-16] VITALS (18 sets, daily range): BP systolic 141–189; BP diastolic 62–99
[2021-06-16 04:20] LABS: BASOPHILS % (AUTO) 0.3 % (0.0-5.0); HEMATOCRIT 38.6 % (36-48); LYMPHOCYTES % (AUTO) 2.5 % (21.0-51.0); MEAN CORPUSCULAR HGB CONC 32.4 g/dL (32.0-36.0); MEAN CORPUSCULAR VOLUME 86.5 fL (79-99); MONOCYTES % (AUTO) 3.3 % (3.0-13.0); NEUTROPHILS % (AUTO) 90.9 % (40.0-77.0); PLATELET COUNT (AUTO) 255 K/uL (130-400); RED BLOOD CELL COUNT(AUTO) 4.46 MIL/uL (4.00-5.50); RED CELL DISTRIBUTION WIDTH 15.3 % (11.0-15.5); WHITE BLOOD COUNT (AUTO) 14.7 K/uL (4.8-10.8)
[2021-06-16 04:39] LABS: ALBUMIN 2.4 g/dL (3.5-5.0); BILIRUBIN,TOTAL 0.5 mg/dL (0.2-1.0); CREATININE 0.7 mg/dL (0.5-1.5); CRP QUANTITATIVE 22.9 mg/L (0.00-9.0); POTASSIUM 4.4 mmol/L (3.5-5.1); TOTAL PROTEIN, SERUM 6.5 g/dL (6.0-8.3)
[2021-06-16] MEDS: LEVOTHYROXINE 88 MCG TABLET PO SCH (06:23)
[2021-06-16] MEDS: SOLU-MEDROL 40MG VIAL IVP SCH ×2 (06:23→17:27)
[2021-06-16] MEDS: INSULIN HUMULIN R 100 UNIT/ML 3ML SQ SCH ×7 (09:40→20:00)
[2021-06-16] MEDS: OXYBUTYNIN 5 MG TAB.SR.24H PO SCH (09:40)
[2021-06-16] MEDS: BARICITINIB (EUA) 2 MG TABLET PO SCH (09:41)
[2021-06-16] MEDS: PANTOPRAZOLE 40 MG TAB DR PO SCH (09:41)
[2021-06-16] MEDS: METOPROLOL TARTRATE 25 MG TAB PO SCH ×2 (09:41→20:03)
[2021-06-16] MEDS: AMLODIPINE 5 MG TAB PO SCH (09:41)
[2021-06-16] MEDS: ENOXAPARIN SODIUM 100 MG/1 ML SQ SCH ×2 (09:46→20:04)
[2021-06-16] MEDS: 0.9% NACL 250ML IVPB SCH (11:50)
[2021-06-16] MEDS: TRAMADOL HCL 50 MG TABLET PO PRN (12:11)
[2021-06-16] MEDS ORDERED: HYDROXYZINE 25 MG TABLET PO PRN (16:30)
[2021-06-16] MEDS: DOCUSATE SODIUM 100 MG CAP PO SCH (17:26)
[2021-06-16] MEDS: BUSPIRONE HCL 5 MG TABLET PO SCH (17:26)
[2021-06-16] MEDS ORDERED: SOLU-MEDROL 40MG VIAL IVP SCH (18:00)
[2021-06-16] MEDS: QUETIAPINE FUMARATE 25 MG TAB PO SCH (20:03)
[2021-06-16] MEDS: ROPINIROLE HCL 1 MG TABLET PO SCH (20:03)
[2021-06-16] MEDS: INSULIN GLARGINE 100 UNITS/ML 10 ML VIAL SQ SCH (20:05)
[2021-06-17] VITALS (20 sets, daily range): BP systolic 104–169; BP diastolic 57–91
[2021-06-17] MEDS: BUSPIRONE HCL 5 MG TABLET PO SCH ×3 (01:30→16:30)
[2021-06-17] MEDS: LACTULOSE 20 GM/30 ML UDCUP PO PRN ×2 (02:37→08:39)
[2021-06-17 04:34] LABS: BASOPHILS % (AUTO) 0.3 % (0.0-5.0); EOSINOPHILS % (AUTO) 0.2 % (0.0-8.0); HEMATOCRIT 35.5 % (36-48); LYMPHOCYTES % (AUTO) 3.6 % (21.0-51.0); MEAN CORPUSCULAR HEMOGLOBIN 28.2 pg (27.0-33.0); MEAN CORPUSCULAR HGB CONC 33.2 g/dL (32.0-36.0); MEAN CORPUSCULAR VOLUME 84.7 fL (79-99); MONOCYTES % (AUTO) 3.6 % (3.0-13.0); NEUTROPHILS % (AUTO) 89.1 % (40.0-77.0); PLATELET COUNT (AUTO) 205 K/uL (130-400); RED BLOOD CELL COUNT(AUTO) 4.19 MIL/uL (4.00-5.50); RED CELL DISTRIBUTION WIDTH 15.1 % (11.0-15.5); WHITE BLOOD COUNT (AUTO) 11.8 K/uL (4.8-10.8)
[2021-06-17 04:47] LABS: ALBUMIN 2.4 g/dL (3.5-5.0); BILIRUBIN,TOTAL 0.5 mg/dL (0.2-1.0); CREATININE 0.6 mg/dL (0.5-1.5); CRP QUANTITATIVE 15.4 mg/L (0.00-9.0); POTASSIUM 4.5 mmol/L (3.5-5.1); TOTAL PROTEIN, SERUM 6.3 g/dL (6.0-8.3)
[2021-06-17] MEDS: SOLU-MEDROL 40MG VIAL IVP SCH ×2 (06:03→17:12)
[2021-06-17] MEDS: LEVOTHYROXINE 88 MCG TABLET PO SCH (06:03)
[2021-06-17] MEDS: INSULIN HUMULIN R 100 UNIT/ML 3ML SQ SCH ×7 (07:30→20:55)
[2021-06-17] MEDS: METOPROLOL TARTRATE 25 MG TAB PO SCH ×2 (08:39→20:53)
[2021-06-17] MEDS: AMLODIPINE 5 MG TAB PO SCH (08:39)
[2021-06-17] MEDS: OXYBUTYNIN 5 MG TAB.SR.24H PO SCH (08:39)
[2021-06-17] MEDS: PANTOPRAZOLE 40 MG TAB DR PO SCH (08:39)
[2021-06-17] MEDS: DOCUSATE SODIUM 100 MG CAP PO SCH (08:39)
[2021-06-17] MEDS: ENOXAPARIN SODIUM 100 MG/1 ML SQ SCH ×2 (08:40→20:58)
[2021-06-17] MEDS: INSULIN GLARGINE 100 UNITS/ML 10 ML VIAL SQ SCH ×2 (08:42→20:56)
[2021-06-17] MEDS ORDERED: DEXMEDETOMIDINE 400MCG/NS100ML IV ONE ×2 (10:08→19:51)
[2021-06-17 14:06] LABS: ABG BASE EXCESS 1.8 mmol/L (-2.0-3.0); ABG HCO3 26.4 mmol/L (21.0-28.0); ABG OXYGEN SATURATION 91.2 % (95.0-99.0); ABG PCO2 41 mmHg (32-45)
[2021-06-17] MEDS ORDERED: FUROSEMIDE 20MG VIAL IV ONE (17:00)
[2021-06-17] MEDS: QUETIAPINE FUMARATE 25 MG TAB PO SCH (20:54)
[2021-06-17] MEDS: ROPINIROLE HCL 1 MG TABLET PO SCH (20:54)
[2021-06-18] VITALS (24 sets, daily range): BP systolic 97–171; BP diastolic 55–88
[2021-06-18] MEDS: BUSPIRONE HCL 5 MG TABLET PO SCH ×3 (01:00→16:32)
[2021-06-18 04:41] LABS: BASOPHILS % (AUTO) 0.2 % (0.0-5.0); HEMATOCRIT 35.4 % (36-48); LYMPHOCYTES % (AUTO) 2.4 % (21.0-51.0); MEAN CORPUSCULAR HGB CONC 32.8 g/dL (32.0-36.0); MEAN CORPUSCULAR VOLUME 85.5 fL (79-99); MONOCYTES % (AUTO) 3.1 % (3.0-13.0); NEUTROPHILS % (AUTO) 92.6 % (40.0-77.0); PLATELET COUNT (AUTO) 197 K/uL (130-400); RED BLOOD CELL COUNT(AUTO) 4.14 MIL/uL (4.00-5.50); WHITE BLOOD COUNT (AUTO) 13.2 K/uL (4.8-10.8)
[2021-06-18 05:00] LABS: ALBUMIN 2.4 g/dL (3.5-5.0); BILIRUBIN,TOTAL 0.6 mg/dL (0.2-1.0); CREATININE 0.7 mg/dL (0.5-1.5); CRP QUANTITATIVE 17.4 mg/L (0.00-9.0); POTASSIUM 4.5 mmol/L (3.5-5.1); TOTAL PROTEIN, SERUM 6.1 g/dL (6.0-8.3)
[2021-06-18] MEDS: INSULIN HUMULIN R 100 UNIT/ML 3ML SQ SCH ×7 (05:43→21:00)
[2021-06-18] MEDS: LEVOTHYROXINE 88 MCG TABLET PO SCH (05:46)
[2021-06-18] MEDS: SOLU-MEDROL 40MG VIAL IVP SCH ×3 (05:46→21:12)
[2021-06-18] MEDS: METOPROLOL TARTRATE 25 MG TAB PO SCH ×2 (10:37→21:12)
[2021-06-18] MEDS: PANTOPRAZOLE 40 MG TAB DR PO SCH (10:37)
[2021-06-18] MEDS: DOCUSATE SODIUM 100 MG CAP PO SCH (10:37)
[2021-06-18] MEDS: AMLODIPINE 5 MG TAB PO SCH (10:37)
[2021-06-18] MEDS: OXYBUTYNIN 5 MG TAB.SR.24H PO SCH (10:37)
[2021-06-18] MEDS: ENOXAPARIN SODIUM 100 MG/1 ML SQ SCH ×2 (10:39→21:13)
[2021-06-18] MEDS: INSULIN GLARGINE 100 UNITS/ML 10 ML VIAL SQ SCH ×2 (10:40→21:14)
[2021-06-18] MEDS: DEXMEDETOMIDINE 400MCG/NS100ML IV SCH (11:59)
[2021-06-18 13:00] LABS: INR 1.1 (0.85-1.15); PROTHROMBIN TIME 11.9 SEC (9.6-11.6)
[2021-06-18] MEDS ORDERED: PHARMACY COMMUNICATION MISC SCH (16:00)
[2021-06-18] MEDS: ACETAMINOPHEN 325 MG TAB PO PRN (16:32)
[2021-06-18] MEDS: ROPINIROLE HCL 1 MG TABLET PO SCH (21:11)
[2021-06-18] MEDS: QUETIAPINE FUMARATE 25 MG TAB PO SCH (21:12)
[2021-06-19] VITALS (24 sets, daily range): BP systolic 102–153; BP diastolic 50–85
[2021-06-19] MEDS: BUSPIRONE HCL 5 MG TABLET PO SCH ×3 (00:39→16:34)
[2021-06-19] MEDS: DEXMEDETOMIDINE 400MCG/NS100ML IV SCH ×3 (00:47→20:22)
[2021-06-19] MEDS: LEVOTHYROXINE 88 MCG TABLET PO SCH (06:12)
[2021-06-19] MEDS: INSULIN HUMULIN R 100 UNIT/ML 3ML SQ SCH ×7 (06:30→21:00)
[2021-06-19 06:59] LABS: BASOPHILS % (AUTO) 0.1 % (0.0-5.0); HEMATOCRIT 35.2 % (36-48); LYMPHOCYTES % (AUTO) 1.8 % (21.0-51.0); MEAN CORPUSCULAR HEMOGLOBIN 27.9 pg (27.0-33.0); MEAN CORPUSCULAR HGB CONC 32.1 g/dL (32.0-36.0); MEAN CORPUSCULAR VOLUME 86.9 fL (79-99); MONOCYTES % (AUTO) 2.2 % (3.0-13.0); NEUTROPHILS % (AUTO) 94.5 % (40.0-77.0); PLATELET COUNT (AUTO) 161 K/uL (130-400); RED BLOOD CELL COUNT(AUTO) 4.05 MIL/uL (4.00-5.50); RED CELL DISTRIBUTION WIDTH 15.1 % (11.0-15.5); WHITE BLOOD COUNT (AUTO) 11.1 K/uL (4.8-10.8)
[2021-06-19 07:14] LABS: ALBUMIN 2.3 g/dL (3.5-5.0); BILIRUBIN,TOTAL 0.8 mg/dL (0.2-1.0); CREATININE 0.6 mg/dL (0.5-1.5); CRP QUANTITATIVE 39.4 mg/L (0.00-9.0); POTASSIUM 4.3 mmol/L (3.5-5.1)
[2021-06-19] MEDS: AMLODIPINE 5 MG TAB PO SCH (09:19)
[2021-06-19] MEDS: SOLU-MEDROL 40MG VIAL IVP SCH ×2 (09:19→21:13)
[2021-06-19] MEDS: DOCUSATE SODIUM 100 MG CAP PO SCH (09:19)
[2021-06-19] MEDS: METOPROLOL TARTRATE 25 MG TAB PO SCH ×2 (09:19→20:49)
[2021-06-19] MEDS: OXYBUTYNIN 5 MG TAB.SR.24H PO SCH (09:19)
[2021-06-19] MEDS: PANTOPRAZOLE 40 MG TAB DR PO SCH (09:19)
[2021-06-19] MEDS: ENOXAPARIN SODIUM 100 MG/1 ML SQ SCH ×2 (09:20→20:20)
[2021-06-19] MEDS: INSULIN GLARGINE 100 UNITS/ML 10 ML VIAL SQ SCH ×2 (09:21→20:18)
[2021-06-19] MEDS: ACETAMINOPHEN 325 MG TAB PO PRN (20:16)
[2021-06-19] MEDS: QUETIAPINE FUMARATE 25 MG TAB PO SCH (20:16)
[2021-06-19] MEDS: ROPINIROLE HCL 1 MG TABLET PO SCH (20:16)
[2021-06-20] VITALS (20 sets, daily range): BP systolic 97–152; BP diastolic 53–102
[2021-06-20] MEDS: DEXMEDETOMIDINE 400MCG/NS100ML IV SCH ×7 (04:06→19:28)
[2021-06-20] MEDS: LEVOTHYROXINE 88 MCG TABLET PO SCH (04:40)
[2021-06-20] MEDS: BUSPIRONE HCL 5 MG TABLET PO SCH ×3 (04:40→16:36)
[2021-06-20] MEDS: INSULIN HUMULIN R 100 UNIT/ML 3ML SQ SCH ×7 (06:24→21:00)
[2021-06-20 07:00] LABS: BASOPHILS % (AUTO) 0.3 % (0.0-5.0); EOSINOPHILS % (AUTO) 0.1 % (0.0-8.0); HEMATOCRIT 37.6 % (36-48); LYMPHOCYTES % (AUTO) 1.3 % (21.0-51.0); MEAN CORPUSCULAR HEMOGLOBIN 28.2 pg (27.0-33.0); MEAN CORPUSCULAR HGB CONC 31.9 g/dL (32.0-36.0); MEAN CORPUSCULAR VOLUME 88.3 fL (79-99); MONOCYTES % (AUTO) 1.9 % (3.0-13.0); NEUTROPHILS % (AUTO) 94.9 % (40.0-77.0); PLATELET COUNT (AUTO) 149 K/uL (130-400); RED BLOOD CELL COUNT(AUTO) 4.26 MIL/uL (4.00-5.50); RED CELL DISTRIBUTION WIDTH 15.4 % (11.0-15.5); WHITE BLOOD COUNT (AUTO) 14.7 K/uL (4.8-10.8)
[2021-06-20 07:13] LABS: ALBUMIN 2.4 g/dL (3.5-5.0); BILIRUBIN,TOTAL 0.6 mg/dL (0.2-1.0); CREATININE 0.9 mg/dL (0.5-1.5); CRP QUANTITATIVE 58.3 mg/L (0.00-9.0); POTASSIUM 4.6 mmol/L (3.5-5.1); TOTAL PROTEIN, SERUM 6.4 g/dL (6.0-8.3)
[2021-06-20] MEDS: INSULIN GLARGINE 100 UNITS/ML 10 ML VIAL SQ SCH ×2 (08:48→21:41)
[2021-06-20] MEDS: AMLODIPINE 5 MG TAB PO SCH ×2 (08:50→09:00)
[2021-06-20] MEDS: PANTOPRAZOLE 40 MG TAB DR PO SCH ×2 (08:51→09:00)
[2021-06-20] MEDS: SOLU-MEDROL 40MG VIAL IVP SCH (08:51)
[2021-06-20] MEDS: OXYBUTYNIN 5 MG TAB.SR.24H PO SCH (08:51)
[2021-06-20] MEDS: DOCUSATE SODIUM 100 MG CAP PO SCH (08:52)
[2021-06-20] MEDS: ENOXAPARIN SODIUM 100 MG/1 ML SQ SCH ×2 (08:52→19:26)
[2021-06-20] MEDS: METOPROLOL TARTRATE 25 MG TAB PO SCH ×2 (08:53→20:12)
[2021-06-20] MEDS ORDERED: MORPHINE 2 MG SYG ONE (10:43)
[2021-06-20] MEDS ORDERED: COMPOUND IV REFRIGERATED 1 EACH IVSOLN MISC PRN (11:00)
[2021-06-20] MEDS ORDERED: 0.9% NACL 250ML IV SCH (11:00)
[2021-06-20] MEDS ORDERED: VANCOMYCIN 1G VIAL IVPB SCH (11:00)
[2021-06-20] MEDS ORDERED: MEROPENEM 1 GM VIAL IVP SCH (11:00)
[2021-06-20] MEDS ORDERED: VANCOMYCIN PROTOCOL PER PHARMACY IV SCH (11:00)
[2021-06-20] MEDS: FUROSEMIDE 20MG VIAL IV SCH (11:00)
[2021-06-20] MEDS ORDERED: VANCOMYCIN 1.25GM/NS 250ML IVPB SCH ×2 (12:00)
[2021-06-20] MEDS ORDERED: PHARMACY COMMUNICATION MISC SCH (13:30)
[2021-06-20] MEDS: VANCOMYCIN 1G 1.25 GM in 0.9% NACL 250ML 250 ML IVPB SCH (17:34)
[2021-06-20] MEDS: MEROPENEM 1 GM VIAL IVP SCH (17:34)
[2021-06-20] MEDS: MORPHINE 2 MG SYG IVP PRN ×2 (17:39→22:03)
[2021-06-20] MEDS: QUETIAPINE FUMARATE 25 MG TAB PO SCH (19:26)
[2021-06-20] MEDS: ROPINIROLE HCL 1 MG TABLET PO SCH (21:40)
[2021-06-21] VITALS (23 sets, daily range): BP systolic 109–145; BP diastolic 62–85
[2021-06-21] MEDS: MEROPENEM 1 GM VIAL IVP SCH ×4 (00:16→23:43)
[2021-06-21] MEDS: BUSPIRONE HCL 5 MG TABLET PO SCH ×4 (00:16→23:42)
[2021-06-21] MEDS: DEXMEDETOMIDINE 400MCG/NS100ML IV SCH ×6 (00:17→19:07)
[2021-06-21] MEDS: MORPHINE 2 MG SYG IVP PRN ×5 (01:58→23:41)
[2021-06-21] MEDS: LEVOTHYROXINE 88 MCG TABLET PO SCH (05:58)
[2021-06-21] MEDS: INSULIN HUMULIN R 100 UNIT/ML 3ML SQ SCH ×7 (06:03→21:13)
[2021-06-21] MEDS: METOPROLOL TARTRATE 25 MG TAB PO SCH ×2 (08:34→22:29)
[2021-06-21] MEDS: DOCUSATE SODIUM 100 MG CAP PO SCH (08:34)
[2021-06-21] MEDS: PANTOPRAZOLE 40 MG TAB DR PO SCH (08:34)
[2021-06-21] MEDS: AMLODIPINE 5 MG TAB PO SCH (08:34)
[2021-06-21] MEDS: SOLU-MEDROL 40MG VIAL IVP SCH (08:34)
[2021-06-21] MEDS: ENOXAPARIN SODIUM 100 MG/1 ML SQ SCH ×2 (08:35→21:12)
[2021-06-21] MEDS: FUROSEMIDE 20MG VIAL IV SCH (10:53)
[2021-06-21] MEDS: OXYBUTYNIN 5 MG TAB.SR.24H PO SCH (11:32)
[2021-06-21] MEDS ORDERED: MORPHINE 2 MG SYG IVP PRN (14:30)
[2021-06-21] MEDS: VANCOMYCIN 1G 1.25 GM in 0.9% NACL 250ML 250 ML IVPB SCH (17:50)
[2021-06-21] MEDS: QUETIAPINE FUMARATE 25 MG TAB PO SCH (21:10)
[2021-06-21] MEDS: ROPINIROLE HCL 1 MG TABLET PO SCH (21:11)
[2021-06-22] VITALS (15 sets, daily range): BP systolic 101–153; BP diastolic 65–97
[2021-06-22] MEDS: DEXMEDETOMIDINE 400MCG/NS100ML IV SCH ×4 (01:12→12:01)
[2021-06-22] MEDS: LEVOTHYROXINE 88 MCG TABLET PO SCH (05:30)
[2021-06-22] MEDS: MORPHINE 2 MG SYG IVP PRN (05:43)
[2021-06-22] MEDS: INSULIN HUMULIN R 100 UNIT/ML 3ML SQ SCH ×4 (06:34→13:24)
[2021-06-22 06:43] LABS: BASOPHILS % (AUTO) 0.2 % (0.0-5.0); HEMATOCRIT 35.4 % (36-48); LYMPHOCYTES % (AUTO) 3.8 % (21.0-51.0); MEAN CORPUSCULAR HEMOGLOBIN 28.2 pg (27.0-33.0); MEAN CORPUSCULAR HGB CONC 30.8 g/dL (32.0-36.0); MEAN CORPUSCULAR VOLUME 91.7 fL (79-99); MONOCYTES % (AUTO) 1.6 % (3.0-13.0); NEUTROPHILS % (AUTO) 91.4 % (40.0-77.0); PLATELET COUNT (AUTO) 98 K/uL (130-400); RED BLOOD CELL COUNT(AUTO) 3.86 MIL/uL (4.00-5.50); RED CELL DISTRIBUTION WIDTH 16.3 % (11.0-15.5)
[2021-06-22 07:02] LABS: ALBUMIN 1.9 g/dL (3.5-5.0); BILIRUBIN,TOTAL 0.4 mg/dL (0.2-1.0); CREATININE 0.8 mg/dL (0.5-1.5); POTASSIUM 4.7 mmol/L (3.5-5.1)
[2021-06-22 07:18] LABS: CRP QUANTITATIVE 217.8 mg/L (0.00-9.0)
[2021-06-22 08:37] LABS: BASOPHILS % (AUTO) 0.2 % (0.0-5.0); EOSINOPHILS % (AUTO) 3.1 % (0.0-8.0); HEMATOCRIT 37.1 % (36-48); MEAN CORPUSCULAR HEMOGLOBIN 28.6 pg (27.0-33.0); MEAN CORPUSCULAR HGB CONC 30.5 g/dL (32.0-36.0); MEAN CORPUSCULAR VOLUME 93.9 fL (79-99); MONOCYTES % (AUTO) 1.6 % (3.0-13.0); NEUTROPHILS % (AUTO) 90.7 % (40.0-77.0); NUCLEATED RED BLOOD CELLS 0.2 % (0.0-0.19); PLATELET COUNT (AUTO) 97 K/uL (130-400); RED BLOOD CELL COUNT(AUTO) 3.95 MIL/uL (4.00-5.50); RED CELL DISTRIBUTION WIDTH 16.3 % (11.0-15.5); WHITE BLOOD COUNT (AUTO) 11.4 K/uL (4.8-10.8)
[2021-06-22] MEDS ORDERED: POLYETHYLENE GLYCOL 3350 17 GM POWD.PACK PO SCH (09:00)
[2021-06-22] MEDS ORDERED: SENNOSIDES 8.6 MG TABLET PO SCH (09:00)
[2021-06-22] MEDS: DOCUSATE SODIUM 100 MG CAP PO SCH (09:44)
[2021-06-22] MEDS: BUSPIRONE HCL 5 MG TABLET PO SCH (09:45)
[2021-06-22] MEDS: SOLU-MEDROL 40MG VIAL IVP SCH (09:45)
[2021-06-22] MEDS: OXYBUTYNIN 5 MG TAB.SR.24H PO SCH (09:45)
[2021-06-22] MEDS ORDERED: AMLODIPINE 5 MG TAB PO SCH (14:00)
== END 2021-06-22 14:32 | DRG 177 ==
LOC: EDH 12:02 → EDHIP 14:49 → 2AH 18:24
PROVIDERS: ADMIT Internal Medicine; ATTEND Internal Medicine
PROC: XW0DXM6 Introduction of Baricitinib into Mouth and Pharynx, External Approach, New Technology Group 6 (ICD-10-PCS; 2021-06-04)
PROC: 5A0935A Assistance with Respiratory Ventilation, Less than 24 Consecutive Hours, High Flow/Velocity Cannula (ICD-10-PCS; 2021-06-05)
PROC: XW033E5 Introduction of Remdesivir Anti-infective into Peripheral Vein, Percutaneous Approach, New Technology Group 5 (ICD-10-PCS; principal; 2021-06-06)
PROC: 5A09357 Assistance with Respiratory Ventilation, Less than 24 Consecutive Hours, Continuous Positive Airway Pressure (ICD-10-PCS; 2021-06-06)
PROC: 5A0935A Assistance with Respiratory Ventilation, Less than 24 Consecutive Hours, High Flow/Velocity Cannula (ICD-10-PCS; 2021-06-06)
PROC: 5A09457 Assistance with Respiratory Ventilation, 24-96 Consecutive Hours, Continuous Positive Airway Pressure (ICD-10-PCS; 2021-06-07)
PROC: 5A0935A Assistance with Respiratory Ventilation, Less than 24 Consecutive Hours, High Flow/Velocity Cannula (ICD-10-PCS; 2021-06-09)
PROC: 5A09357 Assistance with Respiratory Ventilation, Less than 24 Consecutive Hours, Continuous Positive Airway Pressure (ICD-10-PCS; 2021-06-10)
PROC: 5A0935A Assistance with Respiratory Ventilation, Less than 24 Consecutive Hours, High Flow/Velocity Cannula (ICD-10-PCS; 2021-06-10)
PROC: 5A09357 Assistance with Respiratory Ventilation, Less than 24 Consecutive Hours, Continuous Positive Airway Pressure (ICD-10-PCS; 2021-06-11)
PROC: 5A09357 Assistance with Respiratory Ventilation, Less than 24 Consecutive Hours, Continuous Positive Airway Pressure (ICD-10-PCS; 2021-06-12)
PROC: 5A09357 Assistance with Respiratory Ventilation, Less than 24 Consecutive Hours, Continuous Positive Airway Pressure (ICD-10-PCS; 2021-06-13)
PROC: 5A0935A Assistance with Respiratory Ventilation, Less than 24 Consecutive Hours, High Flow/Velocity Cannula (ICD-10-PCS; 2021-06-13)
PROC: 5A0935A Assistance with Respiratory Ventilation, Less than 24 Consecutive Hours, High Flow/Velocity Cannula (ICD-10-PCS; 2021-06-14)
PROC: 5A09357 Assistance with Respiratory Ventilation, Less than 24 Consecutive Hours, Continuous Positive Airway Pressure (ICD-10-PCS; 2021-06-15)
PROC: 5A0935A Assistance with Respiratory Ventilation, Less than 24 Consecutive Hours, High Flow/Velocity Cannula (ICD-10-PCS; 2021-06-15)
PROC: 5A09357 Assistance with Respiratory Ventilation, Less than 24 Consecutive Hours, Continuous Positive Airway Pressure (ICD-10-PCS; 2021-06-16)
PROC: 5A0935A Assistance with Respiratory Ventilation, Less than 24 Consecutive Hours, High Flow/Velocity Cannula (ICD-10-PCS; 2021-06-16)
PROC: 5A09457 Assistance with Respiratory Ventilation, 24-96 Consecutive Hours, Continuous Positive Airway Pressure (ICD-10-PCS; 2021-06-17)
PROC: 02HV33Z Insertion of Infusion Device into Superior Vena Cava, Percutaneous Approach (ICD-10-PCS; 2021-06-18)
PROC: 5A09357 Assistance with Respiratory Ventilation, Less than 24 Consecutive Hours, Continuous Positive Airway Pressure (ICD-10-PCS; 2021-06-19)
PROC: 5A09357 Assistance with Respiratory Ventilation, Less than 24 Consecutive Hours, Continuous Positive Airway Pressure (ICD-10-PCS; 2021-06-20)
PROC: 5A09457 Assistance with Respiratory Ventilation, 24-96 Consecutive Hours, Continuous Positive Airway Pressure (ICD-10-PCS; 2021-06-20)
DX: U07.1 COVID-19 (principal); J12.82 Pneumonia due to coronavirus disease 2019; J80 Acute respiratory distress syndrome; E43 Unspecified severe protein-calorie malnutrition; N17.0 Acute kidney failure with tubular necrosis; E87.1 Hypo-osmolality and hyponatremia; M62.82 Rhabdomyolysis; D68.69 Other thrombophilia; N30.00 Acute cystitis without hematuria; G93.1 Anoxic brain damage, not elsewhere classified; Z66 Do not resuscitate; I10 Essential (primary) hypertension; E66.9 Obesity, unspecified; E87.6 Hypokalemia; E03.9 Hypothyroidism, unspecified; D69.6 Thrombocytopenia, unspecified; E83.42 Hypomagnesemia; E11.65 Type 2 diabetes mellitus with hyperglycemia; E86.1 Hypovolemia; E78.00 Pure hypercholesterolemia, unspecified; B95.8 Unspecified staphylococcus as the cause of diseases classified elsewhere; E78.5 Hyperlipidemia, unspecified; R54 Age-related physical debility; E86.0 Dehydration; Z68.34 Body mass index [BMI] 34.0-34.9, adult; D64.9 Anemia, unspecified; F41.9 Anxiety disorder, unspecified; K59.04 Chronic idiopathic constipation; T38.0X5A Adverse effect of glucocorticoids and synthetic analogues, initial encounter; Z51.5 Encounter for palliative care; Y92.89 Other specified places as the place of occurrence of the external cause; Z90.710 Acquired absence of both cervix and uterus; Z91.19 Patient's noncompliance with other medical treatment and regimen; Z83.3 Family history of diabetes mellitus; Z82.49 Family history of ischemic heart disease and other diseases of the circulatory system
CPT/HCPCS: 36415; 36600; 70450; 71045; 74018; 76770; 80053; 80076; 80202; 81001; 82435; 82550; 82570; 82728; 82803; 82947; 82948; 83036; 83605; 83615; 83735; 83874; 83880; 84100; 84132; 84145; 84295; 84300; 84439; 84443; 84480; 84481; 84484; 84540; 85018; 85025; 85378; 85610; 85651; 86140; 87040; 87071; 87077; 87088; 87186; 87205; 87635; 87804; 93005; 93970; 94660; C1751; C1894; C9803; G0378; J0360; J0692; J0696; J1644; J1650; J1815; J1940; J2185; J2405; J2920; J2930; J3370; J3475; J3490; J7030; J7050; J7120